=== PATIENT | male | born 1995 | race Caucasian/White ===

== ENCOUNTER 2017-12-26 02:51 | Emergency (ER) | payer BC ==
[~2017-12-26] VITALS: Ht 185.4 cm; Wt 72.5 kg
[2017-12-26 02:52] VITALS: BP 132/79; PULSE 98; RESP 16; TEMP 97.5; O2SAT 99
[2017-12-26] MEDS ORDERED: AMOX500T PO (03:10)
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
[2017-12-26] MEDS ORDERED: AMOXICILLIN (TRIHYDRATE) 500 MG CAP PO ONE (03:15)
[2017-12-26] MEDS ORDERED: LIDOCAINE 1%/EPINEPHrine 1:100,000 SOLN 50 ML VIAL INFIL ONE (03:15)
== END 2017-12-26 03:53 | disposition home or self-care (01) ==
LOC: NEPD 02:51
DX: S02.5XXB Fracture of tooth (traumatic), initial encounter for open fracture (principal); Y04.0XXA Assault by unarmed brawl or fight, initial encounter
CPT/HCPCS: 12011

== ENCOUNTER 2017-12-30 11:27 | Emergency (ER) | payer BC ==
[~2017-12-30 11:27] MED LIST: AMOX500T PO
[2017-12-30 12:06] VITALS: BP 128/60; PULSE 72; RESP 14; TEMP 97.6; O2SAT 99
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
== END 2017-12-30 12:31 | disposition home or self-care (01) ==
LOC: NEPK 11:27
DX: Z48.02 Encounter for removal of sutures (principal); F17.200 Nicotine dependence, unspecified, uncomplicated
CPT/HCPCS: 99281